=== PATIENT | female | born 1960 | race Hispanic/Latino ===

== ENCOUNTER 2022-01-12 13:35 | Observation (INO) | payer BC ==
[2022-01-12 13:53] VITALS: BMI 33.5
[2022-01-12] MEDS ORDERED: Ondansetron ODT 4 MG TAB PO PRN (14:24)
[2022-01-12] MEDS ORDERED: Acetaminophen 650 MG Suppository PR PRN (14:24)
[2022-01-12] MEDS ORDERED: Acetaminophen 325 MG TAB PO PRN (14:24)
[2022-01-12] MEDS ORDERED: Ondansetron PF 4 MG/2 ML Vial IVP PRN (14:24)
[2022-01-12] MEDS ORDERED: Nitroglycerin 0.4 MG TAB (25 Tab Bottle) SL PRN (14:24)
[2022-01-12] MEDS ORDERED: Dextrose 5% in Water 1,000 ML IV PRN (14:28)
[2022-01-12] MEDS ORDERED: Insulin Regular 300 UNITS/3 ML VIAL SC PRN ×2 (14:28)
[2022-01-12] MEDS ORDERED: Dextrose 50% Abboject 50 ML SYRINGE SLOW IVP PRN (14:28)
[2022-01-12 15:39] LABS: Troponin I Less than 0.010 ng/mL (< 0.028)
[2022-01-12] MEDS: metFORMIN 500 MG TAB PO SCH (16:12)
[2022-01-12] MEDS ORDERED: Electrolyte Replacement Protocol 1 EACH FS SCH (17:15)
[2022-01-12] MEDS ORDERED: Melatonin 3 MG TAB PO PRN (17:15)
[2022-01-12 18:06] LABS: Anion Gap 14 mmol/L (10-20); BUN (Urea Nitrogen) 12 mg/dL (9.8-20.1); Calc. Creatinine Clearance 95 mL/min (70-130); Carbon Dioxide 24 mmol/L (23-31); Chloride 103 mmol/L (98-107); Estimated GFR 89; Glucose 180 mg/dL (80-115); Sodium 137 mmol/L (136-145)
[2022-01-12 18:14] LABS: Troponin I Less than 0.010 ng/mL (< 0.028)
[2022-01-13 05:07] LABS: #Eosinphils 0.1 10x3/uL (0.0-0.5); #Monocytes 0.8 10x3/uL (0.0-1.1); #Neutrophils 5.3 10x3/uL (1.5-8.4); %Basophils 0.4 % (0.0-2.0); %Eosinophils 1.1 % (0.0-6.0); %Lymphocytes 30.2 % (18.0-47.0); %Monocytes 8.4 % (0.0-10.0); %Neutrophils 59.5 % (40.0-75.0); Hemoglobin 12.7 g/dL (12.0-15.5); Mean Corpuscular HGB CONC 32.9 g/dL (32.0-36.0); Mean Corpuscular Hemoglobin 27.8 pg (27.0-33.0); Mean Corpuscular Volume 84.5 fl (81.6-98.3); Mean Platelet Volume 9.5 fl (7.4-10.4); Platelet Count 308 10x3/uL (150-450); RBC Distribution Width 13.4 % (11.5-14.5); Red Blood Cell (RBC) Count 4.57 10x6/uL (3.90-5.03)
[2022-01-13 05:20] LABS: Anion Gap 12 mmol/L (10-20); BUN (Urea Nitrogen) 18 mg/dL (9.8-20.1); Calc. Creatinine Clearance 93 mL/min (70-130); Calcium 9.6 mg/dL (7.8-10.44); Carbon Dioxide 29 mmol/L (23-31); Cardiac Risk 3.7 (Less than 4.5); Chloride 104 mmol/L (98-107); Cholesterol 127 mg/dl (< 200 Desired); Estimated GFR 86; Glucose 143 mg/dL (80-115); HDL Cholesterol 34 mg/dL (>60 Neg Risk); LDL Cholesterol, Calculated 74 mg/dL; Potassium 4.3 mmol/L (3.5-5.1); Sodium 141 mmol/L (136-145); Triglycerides 94 mg/dL (Less than 150)
[2022-01-13 07:25] VITALS: BP 120/60; TEMP 97.9
[2022-01-13] MEDS: metFORMIN 500 MG TAB PO SCH (08:21)
[2022-01-13] MEDS ORDERED: Hydrochlorothiazide 25 MG TAB PO SCH (09:00)
[2022-01-13] MEDS ORDERED: Losartan Potassium 50 MG TAB PO SCH (09:00)
[2022-01-13] MEDS ORDERED: Citalopram 20 MG TAB PO SCH (09:00)
[2022-01-13] MEDS ORDERED: Aspirin Chewable 81 MG TAB PO SCH (09:00)
== END 2022-01-13 10:17 | disposition home or self-care (01) ==
LOC: CSHTELE 13:35
PROVIDERS: ADMIT Family Medicine; ATTEND Family Medicine
DX: R07.2 Precordial pain (principal); I10 Essential (primary) hypertension; E11.9 Type 2 diabetes mellitus without complications; E87.6 Hypokalemia; F41.9 Anxiety disorder, unspecified; E66.9 Obesity, unspecified; Z79.82 Long term (current) use of aspirin; Z79.84 Long term (current) use of oral hypoglycemic drugs; Z79.899 Other long term (current) drug therapy; Z88.0 Allergy status to penicillin
CPT/HCPCS: 36415; 36416; 80048; 80061; 85025; 93005; 93010; G0378